=== PATIENT | female | born 1940 ===

== ENCOUNTER 2020-07-11 14:27 | Emergency (ER) | payer OTHER ==
[~2020-07-11] VITALS: Ht 162.6 cm; Wt 49.4 kg
[2020-07-11] MEDS ORDERED: AMLODIPINE-OLM1 EAC2 (14:47)
[2020-07-11] MEDS ORDERED: COZAAR50 MG (14:47)
[2020-07-11] MEDS ORDERED: SYNTHROID88 MCG (14:47)
[2020-07-11] MEDS ORDERED: LASIX20 MG PO (17:08)
== END 2020-07-11 18:12 | disposition home or self-care (01) ==
LOC: ER 14:27 → EDBD 14:41 → ER 18:12
DX: R60.0 Localized edema (principal)

== ENCOUNTER 2023-04-18 07:47 | Inpatient (IN) | payer OTHER ==
[~2023-04-18] VITALS: Ht 152.4 cm; Wt 48.5 kg
[~2023-04-18 07:47] MED LIST: AMLODIPINE-OLM1 EAC2; COZAAR50 MG; LASIX20 MG PO; SYNTHROID88 MCG
[2023-04-19] MEDS ORDERED: LOSARTAN POTASS25 MG (08:34)
[2023-04-19] MEDS ORDERED: TRAZODONE HCL50 MG (08:35)
[2023-04-29] MEDS ORDERED: DOCUSATE SODIU100 MG PO (14:49)
[2023-04-29] MEDS ORDERED: TOPROL XL25 M1 PO (14:49)
[2023-04-29] MEDS ORDERED: TESSALON PERLES PO (14:49)
[2023-04-29] MEDS ORDERED: PROTEINEX-18 LI30 ML PO (14:49)
[2023-04-29] MEDS ORDERED: SYNTHROID88 MCG PO (14:49)
[2023-04-29] MEDS ORDERED: VITAMIN B-121000 MCG PO (14:49)
[2023-04-29] MEDS ORDERED: LOSARTAN POTASS25 MG PO (14:49)
[2023-04-29] MEDS ORDERED: Neurin-Sl Tablet Sl SL (14:49)
[2023-04-29] MEDS ORDERED: INTESTINEX680 M1 PO (15:24)
== END 2023-04-30 08:00 | disposition home or self-care (01) | DRG 853 ==
LOC: ER 07:47 → SEC-K 18:44 → SURH 18:44
PROVIDERS: ADMIT Internal Medicine; ATTEND Internal Medicine
PROC: 5A0935A Assistance with Respiratory Ventilation, Less than 24 Consecutive Hours, High Flow/Velocity Cannula (ICD-10-PCS; 2023-04-19)
PROC: 4A12X4Z Monitoring of Cardiac Electrical Activity, External Approach (ICD-10-PCS; 2023-04-21)
PROC: B246ZZZ Ultrasonography of Right and Left Heart (ICD-10-PCS; 2023-04-22)
PROC: 0JB70ZZ Excision of Back Subcutaneous Tissue and Fascia, Open Approach (ICD-10-PCS; principal; 2023-04-24)
PROC: 8E0ZXY6 Isolation (ICD-10-PCS; 2023-04-24)
DX: A41.51 Sepsis due to Escherichia coli [E. coli] (principal); J69.0 Pneumonitis due to inhalation of food and vomit; L89.153 Pressure ulcer of sacral region, stage 3; B37.49 Other urogenital candidiasis; E86.0 Dehydration; E87.6 Hypokalemia; I48.0 Paroxysmal atrial fibrillation; K59.00 Constipation, unspecified; D64.89 Other specified anemias; E83.39 Other disorders of phosphorus metabolism; I11.9 Hypertensive heart disease without heart failure; I25.10 Atherosclerotic heart disease of native coronary artery without angina pectoris; G30.8 Other Alzheimer's disease; F02.80 Dementia in other diseases classified elsewhere, unspecified severity, without behavioral disturbance, psychotic disturbance, mood disturbance, and anxiety; F01.50 Vascular dementia, unspecified severity, without behavioral disturbance, psychotic disturbance, mood disturbance, and anxiety; G31.89 Other specified degenerative diseases of nervous system; R54 Age-related physical debility; E03.9 Hypothyroidism, unspecified; Z74.01 Bed confinement status